=== PATIENT | female | born 1960 | race Caucasian/White ===

== ENCOUNTER → 2016-08-12 | Outpatient (CLI) | payer BC ==
--- NOTE | 2016-08-17 17:38 | MY ---
EXAMINATION: Bilateral digital mammography utilizing CAD. HISTORY: Screening exam. Comparison is made to previous studies dated 08/12/2015, 05/24/2014, 11/06/19 14. FINDINGS: Bilateral heterogeneously dense breast tissue. No suspicious calcifications, masses or architectural distortions. No pathologic appearing lymph nodes, no abnormal skin thickening or nip ple inversion. CAD highlighted regions appear normal at this time. IMPRESSION: BI-RADS category I - negative mammogram. Continued screening according to ACR-ACS gu idelines suggested. THE FALSE-NEGATIVE RATE OF MAMMOGRAM IS APPROXIMATELY 10%. MANAGEMENT OF A PALPABLE ABNORMALITY MUST BE BASED UPON CLINICAL GROUNDS. SENSITIVITY FOR DETECTION OF ABNORMALITIES IN DENSE BREASTS IS LOW. NOTE: A letter will be sent to the patient regarding findings. [facility] -- JOHNATHAN Webster [phone] - FAX [phone]
== END ==
LOC: MW.MAM 08:03
PROVIDERS: ATTEND Nurse Practitioner Women's Health
DX: Z12.31 Encounter for screening mammogram for malignant neoplasm of breast (principal); E78.5 Hyperlipidemia, unspecified
CPT/HCPCS: 36415; 80061; G0202

== ENCOUNTER → 2016-10-07 | Outpatient (CLI) | payer BC | END | disposition home or self-care (01) | LOC: MW.CHOBGYN 17:00 | PROVIDERS: ATTEND Nurse Practitioner Women's Health | DX: L82.1 Other seborrheic keratosis (principal) | CPT/HCPCS: 88305 ==

== ENCOUNTER 2016-11-10 06:26 | Day surgery (SDC) | payer BC ==
[2016-11-10] MEDS ORDERED: Lactated Ringers 1,000 ML IV SCH (07:00)
--- NOTE | 2016-11-10 07:10 | PCM.PREANE ---
Preanesthetic Assessment - Anesthesia/Transfusion/Family Hx Anesthesia History: Prior Anesthesia Without Reaction Other Type of Anesthesia Reaction Comment: Denies any known problems in past Family History of Anesthesia Reaction: No Transfusion History: No Prior Transfusion(s) Intubation History: Unknown - Review of Systems General: No Symptoms Pulmonary: No Symptoms Cardiovascular: No Symptoms Gastrointestinal: No symptoms Neurological: No Symptoms Other: Reports: None - Physical Assessment O2 Sat by Pulse Oximetry: 100 Respiratory Rate: 16 Vital Signs: Last Vital Signs Temp 396.2 C H 11/10/16 06:39 Pulse 59 L 11/10/16 06:39 Resp 16 11/10/16 06:39 BP 97/65 11/10/16 06:39 Pulse Ox 100 11/10/16 06:39 Height: 1.52 m Weight: 49.895 kg ASA Class: 2 Mental Status: Alert & Oriented x3 Airway Class: Mallampati = 2 Dentition: Reports: Normal Dentition Thyro-Mental Finger Breadths: 2 Mouth Opening Finger Breadths: 3 ROM/Head Extension: Full Lungs: Clear to auscultation, Normal respiratory effort Cardiovascular: Regular Rate, Regular Rhythm - Allergies Allergies/Adverse Reactions: Allergies Allergy/AdvReac Type Severity Reaction Status Date / Time No Known Allergies Allergy Verified 02/11/14 16:29 - Blood Blood Available: No - Anesthesia Plan Pre-Op Medication Ordered: None - Acknowledgements Anesthesia Type Planned: MAC Pt an Appropriate Candidate for the Planned Anesthesia: Yes Alternatives and Risks of Anesthesia Discussed w Pt/Guardian: Yes Pt/Guardian Understands and Agrees with Anesthesia Plan: Yes PreAnesthesia Questionnaire HEENT History: Reports: Other (See Below) Other HEENT History: wears glasses/contacts, 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 Cardiovascular History: Reports: High Cholesterol, Hypertension Gastrointestinal History: Reports: Irritable Bowel Syndrome Genitourinary History: Reports: None 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: Musculoskeletal History: Reports: None, Other (See Below) Other Musculoskeletal History: neck pain, myofascial muscle pain - Past Surgical History Head Surgeries/Procedures: Reports: None Female Surgical History: Reports: Section, Hysterectomy Musculoskeletal Surgical History: Reports: Shoulder Surgery (right shoulder) - SUBSTANCE USE Smoking Status *Q: Former Smoker (quit over 20 years ago) Tobacco Use Within Last Twelve Months: No Second Hand Smoke Exposure: No Days Per Week of Alcohol Use: 0 Number of Drinks Per Day: 0 Total Drinks Per Week: 0 Recreational Drug Use History: No - HOME MEDS Home Medications: Home Meds Diclofenac Sodium [Voltaren] 1 applic TOP BID PRN 11/28/13 [History] Hydrochlorothiazide 0.5 tab PO DAILY 11/28/13 [History] Lisinopril [Prinivil] 10 mg PO ACDIN 11/28/13 [History] Progesterone,Micronized [Progesterone] 100 mg PO BEDTIME 02/11/14 [History] Estradiol [Estradiol Transdermal Patch] 1 patch TRDERM ASDIRECTED 11/08/16 [ History] Fenofibrate,Micronized [Fenofibrate] 135 mg PO DAILY 11/08/16 [History] Leaky Gut Mastery 1 tab PO BID 11/08/16 [History] Multizyme 1 tab PO TID 11/08/16 [History] tiZANidine HCl [Tizanidine HCl] 2 mg PO BEDTIME PRN 11/08/16 [History] - CURRENT (IN HOUSE) MEDS Current Meds: Current Medications Bupivacaine HCl/Epinephrine Bitart (Marcaine 0.25%/Epinephrine 1:200,000) 10 ml INJECT ONETIME ONE Stop: 11/10/16 08:01 Lactated Ringer's (Ringers, Lactated) 1,000 mls @ 125 mls/hr IV ASDIRECTED [facility] Last Admin: 11/10/16 06:42 Dose: 125 mls/hr Cefazolin Sodium/Dextrose 2 gm (/ Premix) 50 mls @ 100 mls/hr IV ONETIME ONE Stop: 11/10/16 08:29 Tobramycin/Dexamethasone (Tobradex Ophth Oint) 10 gm EYEBOTH Q4H BRAULIO Tramadol HCl (Ultram) 50 mg PO Q4H PRN PRN Reason: Pain
[2016-11-10] MEDS ORDERED: Sodium Chloride 0.9% 20 ML ONE ×2 (07:30→09:28)
[2016-11-10] MEDS ORDERED: Propofol 200 MG/20 ML SDV ONE (07:36)
[2016-11-10] MEDS ORDERED: diphenhydrAMINE 50 MG/ML SDV ONE (07:39)
[2016-11-10] MEDS ORDERED: Dexamethasone/Tobramycin 0.1-0.3% Ophth Oint 3.5 GM Tube ONE (07:41)
[2016-11-10] MEDS ORDERED: Bupivacaine 0.25%/EPINEPHrine 1:200,000 10 ML SDV ONE (07:41)
[2016-11-10] MEDS ORDERED: Bupivacaine 0.25%/EPINEPHrine 1:200,000 10 ML SDV INJECT ONE (08:00)
[2016-11-10] MEDS ORDERED: traMADol 50 MG Tab PO PRN (08:00)
[2016-11-10] MEDS ORDERED: ceFAZolin 2 GM in Premix Bag 1 BAG IV ONE (08:00)
[2016-11-10] MEDS ORDERED: Dexamethasone/Tobramycin 0.1-0.3% Ophth Oint 3.5 GM Tube EYEBOTH SCH (08:00)
[2016-11-10 10:02] VITALS: BP 110/64
--- NOTE | 2016-11-10 10:31 | PCM48HPAN ---
Post Anesthesia Note - EVALUATION WITHIN 48HRS OF ANESTHETIC Vital Signs in Normal Range: Yes Patient Participated in Evaluation: Yes Respiratory Function Stable: Yes Airway Patent: Yes Cardiovascular Function Stable: Yes Hydration Status Stable: Yes Pain Control Satisfactory: Yes Nausea and Vomiting Control Satisfactory: Yes Mental Status Recovered: Yes - COMMENTS/OBSERVATIONS Free Text/Narrative:: No anesthesia problems. Patient skipped recovery room phase of postoperative care.
--- NOTE | 2016-11-10 16:36 | PCM.OPNOTE ---
- General Post-Op/Procedure Note Date of Surgery/Procedure: 11/10/16 Operative Procedure(s): bilateral upper lid blepharoplasty for excess skin weighing down lids Pre Op Diagnosis: dermatochalasis bilateral eyelids Post-Op Diagnosis: Same Anesthesia Technique: Local, MAC Primary Surgeon: Katie Talamantes Field Technical Assistant: Rima Gutierrez Complications: None Condition: Good Free Text/Narrative:: Intake & Output 11/10/16 11/10/16 11/10/16 07:59 15:59 23:59 Intake Total 950 Balance 950
--- NOTE | 2016-11-11 16:12 | OR ---
SURGEON: EH PATEL MD DATE OF PROCEDURE: 11/10/2016 PREOPERATIVE DIAGNOSIS: Dermatochalasis, bilateral upper eyelids. POSTOPERATIVE DIAGNOSIS: Dermatochalasis, bilateral upper eyelids causing visual obstruction. PROCEDURE: Bilateral upper lid blepharoplasty for excess skin weighing down lids. FEED BLENDER: SUZETTE Perez. ANESTHESIA: Local MAC. INDICATIONS: Ms. Melgoza is a 56-year-old female with visual obstruction due to excess overhanging skin over her upper eyelids. Risks and benefits of excision of this were discussed with her and she was in agreement to proceed. Risks were including, but not limited to, bleeding, infection, damage to underlying or overlying structures, possible need for future interventions and possible scarring. PROCEDURE IN DETAIL: After informed consent was obtained and placed on the chart, the patient was brought to the operating theater and laid in the supine position. After adequate local MAC anesthetic was obtained, the area was prepped and draped, and a time-out was completed to confirm side and site. Attention was then paid to infiltration of the local anesthesia under the previously marked planned excision lines. Once this was completed, the 15 blade was used to dissect through the skin and maintain the muscle in place. The skin was removed and the Bovie electrocautery was used to contract the muscle and obtain meticulous hemostasis. Once this was completed, two 5-0 Monocryl stitches were placed in the dermis to reapproximate this and a 6-0 Prolene was used to close the skin in a running subcuticular fashion. The patient tolerated this well. All counts and needles were correct at the end of the case. FOLLOWUP INSTRUCTIONS: The patient will see us in one week for suture removal or sooner if any problems, questions, or concerns. She was given a prescription for tramadol for pain control if needed. HEGGTHE / MODL /[id number]
== END 2016-11-10 10:10 | disposition home or self-care (01) ==
LOC: MW.SDS 06:26
PROVIDERS: ATTEND Plastic Surgery
DX: H02.834 Dermatochalasis of left upper eyelid (principal); H02.831 Dermatochalasis of right upper eyelid; E78.5 Hyperlipidemia, unspecified; I10 Essential (primary) hypertension; E87.1 Hypo-osmolality and hyponatremia; Z79.899 Other long term (current) drug therapy; Z90.710 Acquired absence of both cervix and uterus; Z98.890 Other specified postprocedural states; Z87.891 Personal history of nicotine dependence
CPT/HCPCS: 15823; A9270; J0690; J1200; J7120; 00103; J2704